=== PATIENT | female | born 1940 | race Caucasian/White ===

== ENCOUNTER 2016-09-02 19:48 | Inpatient (IN) | payer OTHER ==
[~2016-09-02] VITALS: Ht 157.5 cm; Wt 106.3 kg
[~2016-09-02 19:48] MED LIST: CRESTOR10 MG PO; DULERA 200 MCG/13 GM IH; EPITOL200 MG PO; FLUOXETINE HCL20 MG PO; IPRATROPIU0.2 MG/1 M IH; LO-DOSE ASPIRIN81 M2 PO; LOSARTAN-HCTZ1 EAC2 PO; NAPROSYN500 MG PO; OXYCODONE HCL10 MG PO; PERCOCET 5/31 TABLET PO; PREDNISONE20 MG PO; VALIUM5 MG PO; VERAPAMIL HCL240 MG PO; VESICARE5 MG PO; VICODIN 5-3001 EACH PO; ZOFRAN4 MG PO
[2016-09-02 23:08] LABS: CHLORIDE 102 mEq/L (99-109); POTASSIUM 3.7 mEq/L (3.7-5.4); SODIUM 141 mEq/L (136-147)
[2016-09-02 23:09] LABS: MAGNESIUM 1.8 mg/dL (1.3-2.7)
[2016-09-02 23:11] LABS: GLUCOSE 107 mg/dL (70-99)
[2016-09-02 23:12] LABS: ANION GAP 12 MEQ/L (2-14); TOTAL BILIRUBIN 0.4 mg/dL (0.0-1.0)
[2016-09-02 23:14] LABS: ALKALINE PHOSPHATASE 109 IU/L (3-129); GFR ESTIMATE (CALCULATED) 51 mL/min/
[2016-09-02 23:15] LABS: UREA NITROGEN (BUN) 20 mg/dL (9-23)
[2016-09-02 23:16] LABS: DIRECT BILIRUBIN 0.2 mg/dL (0.0-0.3)
[2016-09-02 23:18] LABS: LIPASE 30 U/L (1.0-51.0)
[2016-09-02 23:19] LABS: BASOPHIL COUNT 0.1 K/uL (0-0.1); EOSINOPHIL (%) 1.9 % (0-5); EOSINOPHIL COUNT 0.3 K/uL (0-0.3); HEMATOCRIT 43.4 % (36.0-46.0); IMMATURE GRANULOCYTE (%) 0.4 % (0.0-0.7); IMMATURE GRANULOCYTE COUNT 0.6 K/uL; LYMPHOCYTE COUNT 2.7 K/uL (1.0-2.8); MCH 30.4 PG (29.0-34.0); MCHC 32.9 G/DL (30.0-36.0); MCV 92.3 FL (83-99); MONOCYTE (%) 7.6 % (3-12); MONOCYTE COUNT 1.1 K/uL (0-0.8); NEUTROPHIL (%) 70.7 % (45-76); NEUTROPHIL COUNT 10.2 K/uL (1.8-6.4); RBC DIS.WIDTH-CV 13.5 % (11.8-14.6); RBC DIS.WIDTH-SD 44.4 % (39-53); WHITE BLOOD COUNT 14.4 K/uL (4.1-10.2)
[2016-09-02 23:21] LABS: PLATELET COUNT 171 K/uL (156-360); TROP-I INTERPRETATION NEGATIVE; TROPONIN-I 0.02 ng/mL (0.0-0.30)
[2016-09-02 23:34] LABS: D-DIMER ELISA 2.38 mg/L FEU (< 0.57)
[2016-09-03 00:50] LABS: PTT 18.2 (25-32)
[2016-09-03 05:46] LABS: TROP-I INTERPRETATION NEGATIVE; TROPONIN-I 0.02 ng/mL (0.0-0.30)
[2016-09-03 07:30] VITALS: BP 129/62
[2016-09-03 07:44] LABS: ADD MIUA? YES; BILIRUBIN NEGATIVE; BLOOD MODERATE; COLOR YELLOW ((YELLOW)); GLUCOSE (STRIP) NEGATIVE; KETONES NEGATIVE; LEUKOCYTES MODERATE; NITRITE NEGATIVE; PROTEIN (STRIP) NEGATIVE; UROBILINOGEN 0.2 MG/DL (0.2-1.0)
[2016-09-03 07:59] LABS: BACTERIA RARE /HPF; EPITHELIAL CELLS RARE /HPF; MUCUS TRACE /LPF; UCUL ADDED? NO; WHITE BLOOD CELLS 0-5 /HPF (0-5)
[2016-09-03 11:07] VITALS: BP 122/93
[2016-09-03 12:16] LABS: TROP-I INTERPRETATION NEGATIVE; TROPONIN-I 0.01 ng/mL (0.0-0.30)
[2016-09-03 15:39] LABS: BASOPHIL COUNT 0.1 K/uL (0-0.1); EOSINOPHIL (%) 1.2 % (0-5); EOSINOPHIL COUNT 0.2 K/uL (0-0.3); HEMATOCRIT 41.1 % (36.0-46.0); IMMATURE GRANULOCYTE (%) 0.2 % (0.0-0.7); LYMPHOCYTE COUNT 3.1 K/uL (1.0-2.8); MCH 31.8 PG (29.0-34.0); MCHC 33.8 G/DL (30.0-36.0); MCV 94.1 FL (83-99); MEAN PLAT.VOLUME 10.6 uM^3 (9.5-12.4); MONOCYTE COUNT 1.3 K/uL (0-0.8); NEUTROPHIL (%) 63.3 % (45-76); PLATELET COUNT 222 K/uL (156-360); RBC DIS.WIDTH-CV 13.8 % (11.8-14.6); RBC DIS.WIDTH-SD 47.2 % (39-53); RED BLOOD COUNT 4.37 M/uL (3.80-5.20); WHITE BLOOD COUNT 12.7 K/uL (4.1-10.2)
[2016-09-03 16:01] VITALS: BP 127/61
[2016-09-03 17:23] VITALS: BP 148/66
[2016-09-03 19:24] VITALS: BP 127/66
[2016-09-03 23:40] VITALS: BP 102/59
[2016-09-04 05:25] VITALS: BP 134/76
[2016-09-04 08:11] VITALS: BP 188/91
[2016-09-04 10:17] LABS: EOSINOPHIL (%) 2.4 % (0-5); EOSINOPHIL COUNT 0.2 K/uL (0-0.3); HEMATOCRIT 39.7 % (36.0-46.0); IMMATURE GRANULOCYTE (%) 0.2 % (0.0-0.7); LYMPHOCYTE COUNT 1.7 K/uL (1.0-2.8); MCH 31.4 PG (29.0-34.0); MCHC 33.2 G/DL (30.0-36.0); MCV 94.3 FL (83-99); MONOCYTE (%) 9.6 % (3-12); MONOCYTE COUNT 0.9 K/uL (0-0.8); NEUTROPHIL (%) 70.1 % (45-76); NEUTROPHIL COUNT 6.8 K/uL (1.8-6.4); PLATELET COUNT 219 K/uL (156-360); RBC DIS.WIDTH-CV 13.7 % (11.8-14.6); RBC DIS.WIDTH-SD 47.2 % (39-53); RED BLOOD COUNT 4.21 M/uL (3.80-5.20); WHITE BLOOD COUNT 9.6 K/uL (4.1-10.2)
[2016-09-04 10:35] LABS: ALKALINE PHOSPHATASE 83 IU/L (3-129); ANION GAP 7 MEQ/L (2-14); CHLORIDE 101 MEQ/L (99-109); GFR ESTIMATE (CALCULATED) 46 mL/min/; GLUCOSE 81 mg/dL (70-99); POTASSIUM 4.3 MEQ/L (3.7-5.4); SAMPLE HEMOLYSIS CHECK 0; SAMPLE ICTERIC CHECK 0; SAMPLE LIPEMIA CHECK 0; SODIUM 140 MEQ/L (136-147); TOTAL BILIRUBIN 0.5 MG/DL (0.0-1.0); UREA NITROGEN (BUN) 25 mg/dL (9-23)
[2016-09-04 11:01] LABS: LIPASE 34 U/L (1.0-51.0)
[2016-09-04 16:18] VITALS: BP 144/83
[2016-09-04 19:00] VITALS: BP 146/68
[2016-09-04 23:59] VITALS: BP 149/65
[2016-09-05 04:18] VITALS: BP 118/56
[2016-09-05 07:23] LABS: AMYLASE 61 IU/L (1-118)
[2016-09-05 07:44] LABS: LIPASE 38 U/L (1.0-51.0)
[2016-09-05 12:42] VITALS: BP 182/102
[2016-09-05] MEDS ORDERED: PANTOPRAZOLE SO40 MG PO (14:20)
[2016-09-05 15:51] VITALS: BP 148/78
== END 2016-09-05 15:56 | disposition home or self-care (01) | DRG 439 ==
LOC: EME 19:48 → EDOF 09-03 02:16 → 5WEST 09-03 07:26
PROVIDERS: Emergency Medicine; Internal Medicine; Internal Medicine Gastroenterology; Physician Assistant
DX: K85.90 Acute pancreatitis without necrosis or infection, unspecified (principal); F33.9 Major depressive disorder, recurrent, unspecified; Z68.41 Body mass index [BMI] 40.0-44.9, adult; Z66 Do not resuscitate; F41.9 Anxiety disorder, unspecified; J43.9 Emphysema, unspecified; M19.90 Unspecified osteoarthritis, unspecified site; K21.9 Gastro-esophageal reflux disease without esophagitis; J98.4 Other disorders of lung; E78.5 Hyperlipidemia, unspecified; K44.9 Diaphragmatic hernia without obstruction or gangrene; R31.9 Hematuria, unspecified; E66.01 Morbid (severe) obesity due to excess calories; E78.00 Pure hypercholesterolemia, unspecified; I25.10 Atherosclerotic heart disease of native coronary artery without angina pectoris; K76.0 Fatty (change of) liver, not elsewhere classified; Z99.81 Dependence on supplemental oxygen; Z87.891 Personal history of nicotine dependence; Z96.653 Presence of artificial knee joint, bilateral; Z98.61 Coronary angioplasty status; Z88.5 Allergy status to narcotic agent; Z88.6 Allergy status to analgesic agent; Z82.49 Family history of ischemic heart disease and other diseases of the circulatory system
CPT/HCPCS: 71010; 71275; 74176; 74183; 76705; 78227; 80048; 80053; 80076; 81003; 82150; 83690; 83735; 84484; 85025; 85379; 85610; 85730; 93005; 94640; 94640 76; 94799; 99202; 99281; 99285; A9537; J1170; J1644; J2270; J2405; J2805; J3010; J7030; J7050